=== PATIENT | male | born 1945 | race Caucasian/White ===

== ENCOUNTER → 2016-09-15 | Outpatient (CLI) | payer OTHER ==
--- NOTE | 2016-09-15 10:39 | DX ---
PA and Lateral Chest September 15, 2016 Indication: Dyspnea. Comparison: August 17, 2009. Findings: The lungs are well aerated and clear. No pneumothorax, edema, airspace consolidation, pulmo nary nodule or mass. The thoracic aorta is minimally tortuous similar to July 2009. The heart siz e is normal. Mild multilevel degenerative disk disease has not significantly changed. Impression: Clear lungs. No explanation for dyspnea.
== END ==
LOC: FIMAGING 10:00
PROVIDERS: ATTEND Internal Medicine
DX: R06.09 Other forms of dyspnea (principal); E11.9 Type 2 diabetes mellitus without complications; E55.9 Vitamin D deficiency, unspecified; R25.2 Cramp and spasm